=== PATIENT | male | born 1940 | race Caucasian/White ===

== ENCOUNTER 2019-07-20 13:39 | Inpatient (IN) | payer MEDICARE ==
[~2019-07-20] VITALS: Ht 170.2 cm; Wt 56.0 kg
--- NOTE | 2019-07-20 13:50 | NUR ---
HAWK WEBB FROM [place] FOR SOB, PER [facility] PT WAS 70% ON RA. EMS STATES 85% ON RA. HX OF COPD AND THROAT CA. NADN, PT ABLE TO SPEAK IN FULL SENTENCES. EKG DONE ON ARRIVAL, MD AWARE. CONNECTED TO ALL MONITORING, HTN, OTHER VSS. AWAITING MD ASSESSMENT AND ORDERS AT [facility] TIME. CALL LIGHT WITHIN REACH.
[2019-07-20] MEDS ORDERED: ALBUTEROL/IPRATROPIUM 2.5MG/0.5MG, 3 ML NPPB ONE (14:30)
[2019-07-20] MEDS ORDERED: GUAIFENESIN 200 MG TABLET PO ONE (14:30)
[2019-07-20] MEDS ORDERED: ALBUTEROL/IPRATROPIUM 2.5MG/0.5MG, 3 ML ONE ×2 (14:39→23:35)
[2019-07-20] MEDS ORDERED: GUAIFENESIN 200 MG TABLET ONE (14:52)
--- NOTE | 2019-07-20 14:55 | NUR ---
MEDS PER MAR. NEB TX COMPLETE. STS DOES NOT FEEL ANY DIFFERENT AFTER BREATHING TX.
[2019-07-20] MEDS ORDERED: CEFTRIAXONE PMX 1GM/50ML 50 ML IVPB ONE (16:00)
[2019-07-20] MEDS ORDERED: SODIUM CHLORIDE FLUSH 10ML SYR IVF ONE (16:00)
[2019-07-20] MEDS ORDERED: AZITHROMYCIN 500 MG in SODIUM CHLORIDE 0.9% 250 ML IVPB ONE (16:00)
[2019-07-20 16:23] LABS: BASOPHILS # (AUTO) 0.06 x10^3/uL (0-0.1); BASOPHILS % (AUTO) 1 % (0-1); EOSINOPHILS # (AUTO) 0.05 x10^3/uL (0-0.4); EOSINOPHILS % (AUTO) 1 % (1-7); LYMPHOCYTES # (AUTO) 1.29 x10^3/uL (1-3.4); LYMPHOCYTES % (AUTO) 21 % (22-44); MD NO; MEAN CORPUSCULAR HEMOGLOBIN 30.8 pg (27.5-34.5); MEAN CORPUSCULAR HGB CONC 32.8 g/dL (33.2-36.2); MEAN CORPUSCULAR VOLUME 93.9 fL (81-97); MEAN PLATELET VOLUME 7.7 fL (7.4-10.4); MONOCYTES # (AUTO) 0.26 x10^3/uL (0.2-0.8); MONOCYTES % (AUTO) 4 % (2-9); NEUTROPHILS # (AUTO) 4.59 x10^3/uL (1.8-6.8); NEUTROPHILS % (AUTO) 73 % (42-75); PLATELET COUNT 223 x10^3/uL (130-400); RED BLOOD COUNT 4.91 x10^6/uL (4.38-5.82); RED CELL DISTRIBUTION WIDTH 14.8 % (9.4-14.8)
[2019-07-20] MEDS ORDERED: SODIUM CHLORIDE FLUSH 10ML SYR IVF PRN (16:30)
[2019-07-20 16:31] LABS: ALBUMIN 4.6 g/dL (3.4-5.0); ANION GAP 7 mmol/L (5-15); CALCIUM 9.5 mg/dL (8.5-10.1); CHLORIDE 103 mmol/L (98-107); CREATININE 1.43 mg/dL (0.7-1.3)
--- NOTE | 2019-07-20 16:31 | NUR ---
PT TO EOB FOR URINAL. RESTING. C/O OF SOB. HYPERTENSIVE BEFORE.
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
--- NOTE | 2019-07-20 16:49 | NUR ---
report to Vaibhav SANDOVAL rm [id number]
[2019-07-20] MEDS ORDERED: CEFTRIAXONE PMX 1GM/50ML 50 ML ONE (16:50)
[2019-07-20] MEDS ORDERED: GUAIFENESIN/DM 200-20MG, 10ML UDC PO PRN (17:00)
[2019-07-20] MEDS ORDERED: ONDANSETRON 2MG/ML, 2ML IVPush PRN (17:00)
[2019-07-20] MEDS ORDERED: IBUPROFEN 600 MG TABLET PO PRN ×2 (17:00→17:12)
[2019-07-20] MEDS ORDERED: ONDANSETRON ODT 4 MG PO PRN (17:00)
[2019-07-20] MEDS ORDERED: KETOROLAC 30 MG/1 ML IV PRN (17:00)
[2019-07-20] MEDS ORDERED: HYDROmorphone 2 MG/ML, 1ML IVPush PRN (17:00)
[2019-07-20] MEDS ORDERED: BUTALB/APAP/CAFFEINE 50MG/325MG/40MG PO PRN (17:00)
[2019-07-20] MEDS ORDERED: LACTATED RINGERS 1,000 ML IV ONE (17:00)
[2019-07-20] MEDS ORDERED: POLYETHYLENE GLYCOL 17 GM PACKET PO PRN (17:00)
[2019-07-20] MEDS ORDERED: BACLOFEN 10 MG TABLET PO PRN (17:00)
[2019-07-20] MEDS ORDERED: LABETALOL 5MG/ML, 20ML IVPush PRN (17:00)
[2019-07-20] MEDS: ALBUTEROL/IPRATROPIUM 2.5MG/0.5MG, 3 ML NPPB SCH ×2 (18:44→19:30)
[2019-07-20 19:03] VITALS: BP 150/80
[2019-07-20 19:38] VITALS: BP 192/74
[2019-07-20] MEDS: AZITHROMYCIN 500 MG in SODIUM CHLORIDE 0.9% 250 ML IV SCH (19:39)
[2019-07-20] MEDS: CARVEDILOL 3.125 MG TABLET PO SCH (19:43)
[2019-07-20 20:27] VITALS: BP 162/75
[2019-07-20 21:09] VITALS: BP 148/65
[2019-07-20] MEDS: ACETAMINOPHEN 325 MG TABLET PO PRN (22:45)
[2019-07-21 00:03] VITALS: BP 145/63
[2019-07-21] MEDS: TRAZODONE 50MG TABLET PO PRN ×2 (02:32→21:19)
[2019-07-21] MEDS: ACETAMINOPHEN 325 MG TABLET PO PRN ×2 (03:09→11:51)
[2019-07-21] MEDS ORDERED: ALBUTEROL/IPRATROPIUM 2.5MG/0.5MG, 3 ML NPPB PRN (06:00)
[2019-07-21 06:24] VITALS: BP 159/72
[2019-07-21] MEDS: CARVEDILOL 3.125 MG TABLET PO SCH ×2 (06:27→18:45)
[2019-07-21 07:40] LABS: BASOPHILS # (AUTO) 0.05 x10^3/uL (0-0.1); BASOPHILS % (AUTO) 1 % (0-1); EOSINOPHILS # (AUTO) 0.07 x10^3/uL (0-0.4); EOSINOPHILS % (AUTO) 2 % (1-7); LYMPHOCYTES # (AUTO) 0.77 x10^3/uL (1-3.4); LYMPHOCYTES % (AUTO) 19 % (22-44); MD NO; MEAN CORPUSCULAR HGB CONC 33.1 g/dL (33.2-36.2); MEAN CORPUSCULAR VOLUME 93.8 fL (81-97); MEAN PLATELET VOLUME 7.4 fL (7.4-10.4); MONOCYTES # (AUTO) 0.32 x10^3/uL (0.2-0.8); MONOCYTES % (AUTO) 8 % (2-9); NEUTROPHILS % (AUTO) 70 % (42-75); PLATELET COUNT 174 x10^3/uL (130-400); RED BLOOD COUNT 3.72 x10^6/uL (4.38-5.82); RED CELL DISTRIBUTION WIDTH 14.7 % (9.4-14.8)
[2019-07-21 07:44] LABS: ANION GAP 3 mmol/L (5-15); CALCIUM 8.3 mg/dL (8.5-10.1); CHLORIDE 106 mmol/L (98-107); CREATININE 1.46 mg/dL (0.7-1.3)
[2019-07-21 08:12] LABS: RAPID INFLUENZA A Negative (Negative); RAPID INFLUENZA B Negative (Negative)
[2019-07-21 08:15] VITALS: BP 136/50
[2019-07-21] MEDS ORDERED: AZITHROMYCIN 500 MG in SODIUM CHLORIDE 0.9% 250 ML IV SCH (09:00)
[2019-07-21] MEDS ORDERED: SODIUM CHLORIDE 0.9% 1,000ML IVBOLUS ONE (12:00)
[2019-07-21] MEDS: MULTIVITS,STRESS FORMULA 1 TABLET PO SCH (12:15)
[2019-07-21] MEDS: CEFTRIAXONE PMX 1GM/50ML 50 ML IV SCH ×2 (12:15→23:35)
[2019-07-21 13:50] VITALS: BP 114/54
[2019-07-21] MEDS ORDERED: CHOLECALCIFEROL 400 UNITS/ML ORAL SOL PO SCH (16:30)
[2019-07-21] MEDS: ALBUTEROL/IPRATROPIUM 2.5MG/0.5MG, 3 ML NPPB PRN (17:38)
[2019-07-21 18:30] VITALS: BP 184/71
[2019-07-21] MEDS: AZITHROMYCIN 500 MG in SODIUM CHLORIDE 0.9% 250 ML IV SCH (18:45)
[2019-07-21] MEDS: ASCORBIC ACID 500 MG TABLET PO SCH (19:32)
[2019-07-21 19:50] VITALS: BP 147/75
[2019-07-21] MEDS: KETOROLAC 30 MG/1 ML IV PRN (21:28)
[2019-07-22] VITALS (11 sets, daily range): BP systolic 130–199; BP diastolic 67–95
[2019-07-22] MEDS: CARVEDILOL 3.125 MG TABLET PO SCH ×2 (05:06→17:57)
[2019-07-22 06:05] LABS: BASOPHILS # (AUTO) 0.08 x10^3/uL (0-0.1); BASOPHILS % (AUTO) 2 % (0-1); EOSINOPHILS # (AUTO) 0.14 x10^3/uL (0-0.4); EOSINOPHILS % (AUTO) 3 % (1-7); LYMPHOCYTES # (AUTO) 0.86 x10^3/uL (1-3.4); LYMPHOCYTES % (AUTO) 17 % (22-44); MD NO; MEAN CORPUSCULAR HEMOGLOBIN 31.1 pg (27.5-34.5); MEAN CORPUSCULAR HGB CONC 32.4 g/dL (33.2-36.2); MEAN CORPUSCULAR VOLUME 95.9 fL (81-97); MEAN PLATELET VOLUME 8.5 fL (7.4-10.4); MONOCYTES # (AUTO) 0.32 x10^3/uL (0.2-0.8); MONOCYTES % (AUTO) 7 % (2-9); NEUTROPHILS # (AUTO) 3.55 x10^3/uL (1.8-6.8); NEUTROPHILS % (AUTO) 72 % (42-75); PLATELET COUNT 156 x10^3/uL (130-400); RED BLOOD COUNT 4.06 x10^6/uL (4.38-5.82); RED CELL DISTRIBUTION WIDTH 15.5 % (9.4-14.8)
[2019-07-22 06:12] LABS: CHLORIDE 108 mmol/L (98-107)
[2019-07-22 06:23] LABS: ALBUMIN 3.4 g/dL (3.4-5.0); ANION GAP 7 mmol/L (5-15); CALCIUM 8.1 mg/dL (8.5-10.1); CREATININE 1.38 mg/dL (0.7-1.3)
[2019-07-22] MEDS: ALBUTEROL/IPRATROPIUM 2.5MG/0.5MG, 3 ML NPPB PRN (06:45)
[2019-07-22] MEDS: ASCORBIC ACID 500 MG TABLET PO SCH ×2 (08:57→17:00)
[2019-07-22] MEDS: MULTIVITS,STRESS FORMULA 1 TABLET PO SCH (08:57)
[2019-07-22] MEDS: KETOROLAC 30 MG/1 ML IV PRN (10:08)
[2019-07-22] MEDS ORDERED: SODIUM CHLORIDE 0.9% 1,000ML IVBOLUS ONE (12:00)
[2019-07-22] MEDS: CEFTRIAXONE PMX 1GM/50ML 50 ML IV SCH ×2 (12:02→23:45)
[2019-07-22] MEDS: GUAIFENESIN 200 MG TABLET PO SCH ×3 (12:08→20:38)
[2019-07-22] MEDS: LISINOPRIL 20 MG TABLET PO SCH (12:08)
[2019-07-22] MEDS: ACETAMINOPHEN 325 MG TABLET PO PRN (13:21)
[2019-07-22] MEDS: CHOLECALCIFEROL 400 UNITS TABLET PO SCH (16:30)
[2019-07-22] MEDS ORDERED: LORazepam 2 MG/ML, 1ML ONE (17:52)
[2019-07-22] MEDS: LORazepam 2 MG/ML, 1ML IVPush PRN (18:03)
[2019-07-22] MEDS: hydrALAzine 20 MG/ML, 1ML IVPush PRN (18:08)
[2019-07-22] MEDS ORDERED: DILTIAZEM 5 MG/ML, 5ML IVPush ONE (19:00)
[2019-07-22] MEDS: AZITHROMYCIN 500 MG in SODIUM CHLORIDE 0.9% 250 ML IV SCH (19:30)
[2019-07-22] MEDS ORDERED: RACEPINEPHRINE INH 2.25%, 0.5ML ONE (20:08)
[2019-07-22] MEDS ORDERED: RACEPINEPHRINE INH 2.25%, 0.5ML NPPB PRN (21:00)
[2019-07-22] MEDS ORDERED: DEXAMETHASONE 4 MG/ML, 1ML IVPush ONE (22:00)
[2019-07-23 02:41] VITALS: BP 173/83
[2019-07-23] MEDS: hydrALAzine 20 MG/ML, 1ML IVPush PRN (02:41)
[2019-07-23] MEDS: ALBUTEROL/IPRATROPIUM 2.5MG/0.5MG, 3 ML NPPB PRN (03:31)
[2019-07-23 05:34] VITALS: BP 158/83
[2019-07-23] MEDS: CARVEDILOL 3.125 MG TABLET PO SCH ×2 (05:36→17:47)
[2019-07-23] MEDS: GUAIFENESIN 200 MG TABLET PO SCH ×4 (05:37→20:34)
[2019-07-23 08:10] VITALS: BP 150/80
[2019-07-23] MEDS: LISINOPRIL 20 MG TABLET PO SCH (09:29)
[2019-07-23] MEDS: ASCORBIC ACID 500 MG TABLET PO SCH ×2 (09:29→17:47)
[2019-07-23] MEDS: MULTIVITS,STRESS FORMULA 1 TABLET PO SCH (09:29)
[2019-07-23 09:40] LABS: HCT (SEDRATE) 43.9 % (39.2-51.8)
[2019-07-23] MEDS ORDERED: OMNIPAQUE 350 MG/ML, 75ML BOTTLE ONE (13:18)
[2019-07-23] MEDS: CEFTRIAXONE PMX 1GM/50ML 50 ML IV SCH (13:33)
[2019-07-23 14:20] VITALS: BP 148/68
[2019-07-23] MEDS: ACETAMINOPHEN 325 MG TABLET PO PRN ×2 (15:28→20:35)
[2019-07-23 17:40] VITALS: BP 146/70
[2019-07-23] MEDS: CHOLECALCIFEROL 400 UNITS TABLET PO SCH (17:52)
[2019-07-23] MEDS: AZITHROMYCIN 500 MG in SODIUM CHLORIDE 0.9% 250 ML IV SCH (18:47)
[2019-07-23 20:26] VITALS: BP 100/57
[2019-07-23] MEDS: TRAZODONE 50MG TABLET PO PRN (20:35)
[2019-07-24] MEDS: CEFTRIAXONE PMX 1GM/50ML 50 ML IV SCH (01:00)
[2019-07-24 01:46] VITALS: BP 155/68
[2019-07-24] MEDS: ALBUTEROL/IPRATROPIUM 2.5MG/0.5MG, 3 ML NPPB PRN (02:38)
[2019-07-24] MEDS: LORazepam 2 MG/ML, 1ML IVPush PRN (03:28)
[2019-07-24] MEDS ORDERED: SODIUM CHLORIDE INHALATION 7%, 4 ML ONE (03:45)
[2019-07-24] MEDS ORDERED: RACEPINEPHRINE INH 2.25%, 0.5ML ONE (03:45)
[2019-07-24] MEDS: CARVEDILOL 3.125 MG TABLET PO SCH ×2 (06:37→16:46)
[2019-07-24] MEDS: GUAIFENESIN 200 MG TABLET PO SCH ×4 (06:37→20:06)
[2019-07-24 06:38] VITALS: BP 179/76
[2019-07-24 07:17] LABS: ANION GAP 6 mmol/L (5-15); CALCIUM 8.4 mg/dL (8.5-10.1); CHLORIDE 109 mmol/L (98-107); CREATININE 1.39 mg/dL (0.7-1.3)
[2019-07-24] MEDS: ASCORBIC ACID 500 MG TABLET PO SCH ×2 (08:26→16:46)
[2019-07-24] MEDS: MULTIVITS,STRESS FORMULA 1 TABLET PO SCH (08:26)
[2019-07-24] MEDS: hydrALAzine 20 MG/ML, 1ML IVPush PRN (08:26)
[2019-07-24] MEDS: FUROSEMIDE 40 MG/4 ML IV SCH (08:27)
[2019-07-24] MEDS: LISINOPRIL 20 MG TABLET PO SCH (08:48)
[2019-07-24] MEDS: AMLODIPINE 5 MG TABLET PO SCH (08:48)
[2019-07-24 08:59] LABS: INTERNATIONAL NORMALIZED RATIO 1.02 (0.93-1.1); PROTHROMBIN TIME 10.7 Seconds (9.6-11.5)
[2019-07-24] MEDS ORDERED: LIDOCAINE 1%, 10ML ONE (09:25)
[2019-07-24 09:36] LABS: TOTAL PROTEIN 6.4 g/dL (6.4-8.2)
[2019-07-24 12:13] VITALS: BP 154/75
[2019-07-24 12:35] LABS: CELLS COUNTED 122
[2019-07-24] MEDS: TRAZODONE 50MG TABLET PO PRN ×2 (13:30→20:06)
[2019-07-24] MEDS: CHOLECALCIFEROL 400 UNITS TABLET PO SCH (16:46)
[2019-07-24 19:58] VITALS: BP 137/71
[2019-07-24] MEDS: ACETAMINOPHEN 325 MG TABLET PO PRN (20:06)
[2019-07-25 01:54] VITALS: BP 160/79
[2019-07-25] MEDS: TRAZODONE 50MG TABLET PO PRN (02:44)
[2019-07-25 06:26] VITALS: BP 160/71
[2019-07-25] MEDS: CARVEDILOL 3.125 MG TABLET PO SCH ×2 (06:32→17:02)
[2019-07-25] MEDS: GUAIFENESIN 200 MG TABLET PO SCH ×4 (06:32→21:01)
[2019-07-25 06:51] LABS: ANION GAP 7 mmol/L (5-15); CALCIUM 8.5 mg/dL (8.5-10.1); CHLORIDE 108 mmol/L (98-107); CREATININE 1.23 mg/dL (0.7-1.3)
[2019-07-25 07:03] LABS: BASOPHILS # (AUTO) 0.03 x10^3/uL (0-0.1); BASOPHILS % (AUTO) 1 % (0-1); EOSINOPHILS # (AUTO) 0.21 x10^3/uL (0-0.4); EOSINOPHILS % (AUTO) 4 % (1-7); LYMPHOCYTES # (AUTO) 0.76 x10^3/uL (1-3.4); LYMPHOCYTES % (AUTO) 14 % (22-44); MD NO; MEAN CORPUSCULAR HGB CONC 33.1 g/dL (33.2-36.2); MEAN CORPUSCULAR VOLUME 93.7 fL (81-97); MEAN PLATELET VOLUME 8.4 fL (7.4-10.4); MONOCYTES # (AUTO) 0.38 x10^3/uL (0.2-0.8); MONOCYTES % (AUTO) 7 % (2-9); NEUTROPHILS # (AUTO) 3.99 x10^3/uL (1.8-6.8); NEUTROPHILS % (AUTO) 74 % (42-75); PLATELET COUNT 170 x10^3/uL (130-400); RED BLOOD COUNT 4.22 x10^6/uL (4.38-5.82); RED CELL DISTRIBUTION WIDTH 15.3 % (9.4-14.8)
[2019-07-25] MEDS: LISINOPRIL 20 MG TABLET PO SCH (09:29)
[2019-07-25] MEDS: AMLODIPINE 5 MG TABLET PO SCH (09:30)
[2019-07-25] MEDS: ASCORBIC ACID 500 MG TABLET PO SCH ×2 (09:30→17:02)
[2019-07-25] MEDS: MULTIVITS,STRESS FORMULA 1 TABLET PO SCH (09:30)
[2019-07-25] MEDS: FUROSEMIDE 40 MG/4 ML IV SCH (09:30)
[2019-07-25 12:03] VITALS: BP 156/70
[2019-07-25] MEDS: ACETAMINOPHEN 325 MG TABLET PO PRN ×2 (14:26→21:01)
[2019-07-25] MEDS: CHOLECALCIFEROL 400 UNITS TABLET PO SCH (17:02)
[2019-07-25 19:12] VITALS: BP 131/63
[2019-07-26 01:15] VITALS: BP 138/71
[2019-07-26 05:40] VITALS: BP 135/58
[2019-07-26] MEDS: CARVEDILOL 3.125 MG TABLET PO SCH (05:42)
[2019-07-26] MEDS: GUAIFENESIN 200 MG TABLET PO SCH ×2 (05:42→11:45)
[2019-07-26 07:10] VITALS: BP 163/78
[2019-07-26] MEDS: FUROSEMIDE 40 MG/4 ML IV SCH (08:05)
[2019-07-26] MEDS: MULTIVITS,STRESS FORMULA 1 TABLET PO SCH (08:05)
[2019-07-26] MEDS: LISINOPRIL 20 MG TABLET PO SCH (08:05)
[2019-07-26] MEDS: AMLODIPINE 5 MG TABLET PO SCH (08:05)
[2019-07-26] MEDS: ASCORBIC ACID 500 MG TABLET PO SCH (08:06)
[2019-07-26 13:14] VITALS: BP 107/50
[2019-07-26] MEDS ORDERED: LISI-170 PO (13:56)
[2019-07-26] MEDS ORDERED: CARV3.1212 PO (13:56)
[2019-07-26] MEDS ORDERED: AMLO-150 PO (13:56)
[2019-08-18] MEDS ORDERED: LORAZEPAM (16:02)
[2019-08-18] MEDS ORDERED: SENN-204 PO (16:02)
[2019-08-18] MEDS ORDERED: MORP100S3 PO (16:02)
[2019-08-18] MEDS ORDERED: HYDR-36 PO (16:03)
== END 2019-07-26 14:00 | disposition hospice, home (50) | DRG 193 ==
LOC: ED 15:03 → 3N 16:29 → EDIP 16:59 → UNDOADMIN 16:59 → SUATTDRO 17:18 → 3N 17:24 → EDIP 17:24 → 4EST 21:44
PROVIDERS: ADMIT Hospitalist; ATTEND Internal Medicine
PROC: 0W9B3ZZ Drainage of Left Pleural Cavity, Percutaneous Approach (ICD-10-PCS; principal; 2019-07-24)
DX: J18.9 Pneumonia, unspecified organism (principal); J96.21 Acute and chronic respiratory failure with hypoxia; J44.0 Chronic obstructive pulmonary disease with (acute) lower respiratory infection; I13.0 Hypertensive heart and chronic kidney disease with heart failure and stage 1 through stage 4 chronic kidney disease, or unspecified chronic kidney disease; I50.40 Unspecified combined systolic (congestive) and diastolic (congestive) heart failure; J91.8 Pleural effusion in other conditions classified elsewhere; I16.0 Hypertensive urgency; H91.90 Unspecified hearing loss, unspecified ear; R91.8 Other nonspecific abnormal finding of lung field; I35.0 Nonrheumatic aortic (valve) stenosis; I27.20 Pulmonary hypertension, unspecified; I35.1 Nonrheumatic aortic (valve) insufficiency; N18.3 Chronic kidney disease, stage 3 (moderate); Z93.0 Tracheostomy status; Z85.819 Personal history of malignant neoplasm of unspecified site of lip, oral cavity, and pharynx
CPT/HCPCS: 32555; 36415; 71045; 71260; 80048; 80069; 82040; 82962; 83615; 83735; 83880; 84145; 84155; 84157; 85025; 85610; 85651; 86140; 87070; 87205; 87400; 88112; 89051; 93005; 93306; 94640; 96374; G0378; J0456; J0696; J1100; J1885; J1940; J7620; Q9967; J0360; J2060; J7030; J7050; J7120

== ENCOUNTER 2019-08-19 15:42 | Emergency (ER) | payer MEDICARE ==
[~2019-08-19] VITALS: Ht 170.2 cm; Wt 48.0 kg
[~2019-08-19 15:42] MED LIST: AMLO-150 PO; CARV3.1212 PO; HYDR-36 PO; LISI-170 PO; LORAZEPAM; MORP100S3 PO; SENN-204 PO
[2019-08-19 15:44] VITALS: BP 121/45
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
== END 2019-08-19 16:11 | disposition left against medical advice (07) ==
LOC: ED 16:09
DX: J98.4 Other disorders of lung (principal); Z53.21 Procedure and treatment not carried out due to patient leaving prior to being seen by health care provider

== ENCOUNTER 2019-08-21 13:45 | Emergency (ER) | payer MEDICARE ==
[~2019-08-21] VITALS: Ht 165.1 cm; Wt 49.4 kg
--- NOTE | 2019-08-21 14:48 | NUR ---
PT PLACED ON ALL ROOM MONITORING EQUIPMENT. VSS. PT IN NAD AT THIS TIME. [facility] SW IN TO SEE PT, REVIEWING POC AND HOSPICE STATUS. CALL LIGHT WITHIN REACH, WARM BLANKET PROVIDED, FRIEND AT BS.
[2019-08-21 15:05] LABS: ANION GAP 7 mmol/L (5-15); CALCIUM 10.4 mg/dL (8.5-10.1); CHLORIDE 105 mmol/L (98-107)
[2019-08-21 15:17] LABS: BASOPHILS % (AUTO) 0 % (0-1); EOSINOPHILS # (AUTO) 0.05 x10^3/uL (0-0.4); EOSINOPHILS % (AUTO) 1 % (1-7); LYMPHOCYTES # (AUTO) 0.87 x10^3/uL (1-3.4); LYMPHOCYTES % (AUTO) 17 % (22-44); MD NO; MEAN CORPUSCULAR HEMOGLOBIN 30.8 pg (27.5-34.5); MEAN CORPUSCULAR HGB CONC 32.9 g/dL (33.2-36.2); MEAN CORPUSCULAR VOLUME 93.7 fL (81-97); MEAN PLATELET VOLUME 8.5 fL (7.4-10.4); MONOCYTES # (AUTO) 0.17 x10^3/uL (0.2-0.8); MONOCYTES % (AUTO) 3 % (2-9); NEUTROPHILS # (AUTO) 4.04 x10^3/uL (1.8-6.8); NEUTROPHILS % (AUTO) 79 % (42-75); PLATELET COUNT 186 x10^3/uL (130-400); RED BLOOD COUNT 5.62 x10^6/uL (4.38-5.82); RED CELL DISTRIBUTION WIDTH 14.5 % (9.4-14.8)
--- NOTE | 2019-08-21 15:22 | NUR ---
TASK RN: PT SITTING UP IN [facility]; TALKATIVE AND REQUESTING 'TO GO HOME BEFORE IT SNOWS'. PT HYPERTENSIVE W/ HX OF SAME- NON-COMPLIANT WITH ANTIHYPERTENSIVE/CHF MEDICATIONS. PT DENIES CP/LOPEZ/FLANK PAIN. HR IRREGULAR SINUS, RATE 60'S W/ PERIODS INTO 120'S. ERP AWARE. ORDER FOR CLONIDINE RECEIVED. PRIMARY RN, MITALI AWARE.
--- NOTE | 2019-08-21 15:35 | NUR ---
PT MEDICATED PER ERP ORDER FOR HTN. PT ASKING TO LEAVE, WANTS TO GET HOME. ALL RESULTS BACK, PT FOR RECHECK.
[2019-08-21 16:10] VITALS: BP 193/101
== END 2019-08-21 16:12 | disposition home or self-care (01) ==
LOC: ED 15:10
DX: R06.00 Dyspnea, unspecified (principal); J44.9 Chronic obstructive pulmonary disease, unspecified; Z87.891 Personal history of nicotine dependence
CPT/HCPCS: 36415; 71045; 80048; 82040; 83880; 85025; 93005; 99284